=== PATIENT | male | born 1970 | race Caucasian/White ===

== ENCOUNTER 2023-11-01 07:02 | Day surgery (SDC) | payer BC ==
[2023-11-01] VITALS (7 sets, daily range): BP systolic 100–132; BP diastolic 67–90; PULSE 52–82; TEMP 98.7
[~2023-11-01] VITALS: Ht 188 cm; Wt 175.7 kg
[2023-11-01 07:51] LABS: HEMOGLOBIN 16.1 g/dl (13.5-18.0); MEAN CELL VOLUME 95 fl (80.0-100.0); MEAN CORPUSCULAR HEMOGLOBIN 31 pg (27-31); MEAN CORPUSCULAR HGB CONC 33 g/dl (33.0-37.0); MEAN PLATELET VOLUME 8.5 fl (7.4-10.4); PLATELET COUNT 191 K/mm3 (130-400); RED BLOOD COUNT 5.18 M/mm3 (4.20-5.60); REDCELL DISTRIBUTION WIDTH-CV 12.9 % (11.5-14.5)
[2023-11-01] MEDS ORDERED: ELIQUIS 5MG PO (08:01)
[2023-11-01] MEDS ORDERED: PACERONE200 MG PO (08:01)
[2023-11-01] MEDS ORDERED: WELLBUTRIN SR150 M1 PO (08:01)
[2023-11-01] MEDS ORDERED: COREG 25MG25 MG/TAB PO (08:02)
[2023-11-01] MEDS ORDERED: COZAAR100 MG PO (08:02)
[2023-11-01] MEDS ORDERED: LASIX 80MG TABL80 MG PO (08:02)
[2023-11-01] MEDS ORDERED: KLOR-CON SPRIN10 MEQ PO ×2 (08:03)
[2023-11-01] MEDS ORDERED: LEXAPRO 5MG5 MG PO (08:03)
[2023-11-01] MEDS ORDERED: VIAGRA100 M1 (08:04)
[2023-11-01] MEDS ORDERED: VITAMIN C500 MG PO (08:05)
[2023-11-01 08:07] LABS: INR 1.1 (0.8-3.0); PROTHROMBIN TIME 11.6 SECONDS (9.7-12.8)
[2023-11-01 08:08] LABS: CALCIUM 8.9 mg/dL (8.4-10.2); CREATININE, serum 0.99 mg/dL (0.72-1.25); MAGNESIUM 2.2 mg/dL (1.6-2.6); POTASSIUM 3.9 mmol/L (3.5-4.5)
[2023-11-01 08:10] LABS: PARTIAL THROMBOPLASTIN TIME 33.2 SECONDS (26.0-37.0)
[2023-11-01 08:36] LABS: THYROID STIMULATING HORMONE 2.529 uIU/mL (0.350-4.940)
--- NOTE | 2023-11-01 12:52 | NUR ---
PT TOLERATED RECOVERY PERIOD WELL. VS REMAINED WITHIN NORMAL LIMITS. PT ASSISTED TO MAIN LOBBY VIA WHEELCHAIR AND HE VERBALIZED UNDERSTANDING OF DISCHARGE INSTRUCTIONS. PT IV DISCONTINUED AND PT REMAINED FREE FROM ACUTE CONCERNS AND COMPLAINTS AT TIME OF DISCHARGE.
== END 2023-11-01 11:45 | disposition home or self-care (01) ==
LOC: COL.CAR 07:02
PROVIDERS: Internal Medicine Cardiovascular Disease
DX: I48.19 Other persistent atrial fibrillation (principal); G47.33 Obstructive sleep apnea (adult) (pediatric); Z99.89 Dependence on other enabling machines and devices; Z79.01 Long term (current) use of anticoagulants
CPT/HCPCS: J2704; J7120